=== PATIENT | female | born 1990 | race African-American/Black ===

== ENCOUNTER → 2022-08-21 | Outpatient (CLI) | payer OTHER | LOC: M RAD 15:11 | PROVIDERS: ATTEND Physician Assistant | DX: M25.532 Pain in left wrist (principal); R93.6 Abnormal findings on diagnostic imaging of limbs ==

== ENCOUNTER → 2022-10-14 | Outpatient (CLI) | payer OTHER ==
[~2022-10-14] MED LIST: ISOVUE-300 61% 50ML VIAL ONE; LIDOCAINE 1% MDV 20ML VIAL ONE; PROHANCE 279.3MG/ML 5ML VIAL ONE
== END ==
LOC: M PLAIMG 13:12
PROVIDERS: ATTEND Physician Assistant
DX: M25.532 Pain in left wrist (principal)
CPT/HCPCS: 73223; 77002; A9576

== ENCOUNTER 2023-08-06 16:58 | Inpatient (IN) | payer OTHER ==
[~2023-08-06] VITALS: Ht 165.1 cm; Wt 68.2 kg
[2023-08-06 18:25] LABS: HEMATOCRIT 36.6 % (36.0-47.0); HEMOGLOBIN 12.2 g/dl (12.0-15.5); MEAN CORPUSCULAR HEMOGLOBIN 29.3 pg (27.0-33.0); MEAN CORPUSCULAR HGB CONC 33.3 g/dl (32.0-36.5); PLATELET COUNT, AUTOMATED 284 10^3/uL (150-450); RED BLOOD COUNT 4.16 10^6/uL (4.00-5.40); WHITE BLOOD COUNT 3.8 10^3/uL (4.0-10.0)
[2023-08-06] MEDS ORDERED: MED REC IN PROGRESS XX SCH (18:40)
[2023-08-06 18:56] LABS: ETHYL ALCOHOL (ETHANOL) 0.004 % (0.000-0.010)
[2023-08-06 18:57] LABS: ACETAMINOPHEN LEVEL 2.8 UG/ML (10.0-20.0); SALICYLATE LEVEL < 3.0 MG/DL (<30)
[2023-08-06 18:58] LABS: ALBUMIN 3.6 G/DL (3.2-5.2); ALKALINE PHOSPHATASE 57 U/L (46-116); ALT/SGPT 19 U/L (7.0-40); AST/SGOT 19 U/L (<34); BILIRUBIN,DIRECT < 0.1 MG/DL (<0.4); BILIRUBIN,TOTAL 0.3 MG/DL (0.3-1.2); BLOOD UREA NITROGEN 20 MG/DL (9-23); CALCIUM LEVEL 8.8 MG/DL (8.5-10.1); CARBON DIOXIDE LEVEL 25 MMOL/L (20-31); CHLORIDE LEVEL 106 MMOL/L (98-107); CREATININE FOR GFR 1.01 MG/DL (0.55-1.30); GLOMERULAR FILTRATION RATE > 60.0 (>60); GLUCOSE, FASTING 96 MG/DL (60-100); POTASSIUM SERUM 3.9 MMOL/L (3.5-5.1); SODIUM LEVEL 138 MMOL/L (136-145); TOTAL PROTEIN 7.4 G/DL (5.7-8.2)
[2023-08-06 18:59] LABS: THYROID STIMULATING HORMONE 5.195 uIU/ML (0.55-4.78)
[2023-08-06 19:02] LABS: HCG, SERUM QUALITATIVE NEGATIVE (NEGATIVE)
[2023-08-06] MEDS ORDERED: BUSPAR (19:49)
[2023-08-06] MEDS ORDERED: BUSP10TA PO (19:49)
[2023-08-06] MEDS ORDERED: WELLTAB40 PO (19:52)
[2023-08-06] MEDS ORDERED: MELA10CA6 PO (19:53)
[2023-08-06 20:23] LABS: AMPHETAMINES LEVEL URINE NEGATIVE (NEGATIVE); BARBITURATES URINE NEGATIVE (NEGATIVE)
[2023-08-06 20:24] LABS: BENZODIAZEPINES URINE NEGATIVE (NEGATIVE); CANNABINOIDS URINE NEGATIVE (NEGATIVE); COCAINE METABOLITE URINE NEGATIVE (NEGATIVE); METHADONE URINE NEGATIVE (NEGATIVE); OPIATES URINE NEGATIVE (NEGATIVE); PHENCYCLIDINE URINE NEGATIVE (NEGATIVE)
[2023-08-06] MEDS ORDERED: HOME MED LIST COMPLETE! XX SCH (21:05)
[2023-08-07] MEDS ORDERED: busPIRone 10 MG TAB PO SCH (09:00)
[2023-08-07] MEDS ORDERED: buPROPion **XL** TABLET 150MG (WELLBUTRIN XL) PO SCH (09:00)
[2023-08-07] MEDS ORDERED: NICOTINE 14 MG/24 HR TRANSDERMAL TD SCH (09:00)
[2023-08-07] MEDS ORDERED: IBUPROFEN 400MG TAB PO PRN (11:30)
[2023-08-07] MEDS ORDERED: MOM 30ML SUSPENSION UDC PO PRN (11:30)
[2023-08-07] MEDS ORDERED: ACETAMINOPHEN TAB 650MG DOSE (2X325MG) PO PRN (11:30)
[2023-08-07] MEDS ORDERED: traZODone 50 MG TAB PO PRN (11:30)
[2023-08-07] MEDS ORDERED: MAALOX 30 ML SUSP *UDC PO PRN (11:30)
[2023-08-07] MEDS ORDERED: diphenhydrAMINE 25MG CAP PO PRN (11:30)
[2023-08-07 13:44] VITALS: BP 135/93; TEMP 97.5; O2SAT 99
[2023-08-07 19:00] VITALS: BP 130/88; TEMP 98.1
[2023-08-07] MEDS ORDERED: RAMELTEON 8 MG TAB (ROZEREM) PO SCH (21:00)
[2023-08-08 06:26] VITALS: BP 141/89; TEMP 98; O2SAT 100
[2023-08-08] MEDS ORDERED: traZODone 50 MG TAB PO PRN (08:50)
[2023-08-08] MEDS ORDERED: MAALOX 30 ML SUSP *UDC PO PRN (08:50)
[2023-08-08] MEDS ORDERED: IBUPROFEN 400MG TAB PO PRN (08:50)
[2023-08-08] MEDS ORDERED: ACETAMINOPHEN TAB 650MG DOSE (2X325MG) PO PRN (08:50)
[2023-08-08] MEDS: NICOTINE 14 MG/24 HR TRANSDERMAL TD SCH (09:00)
[2023-08-08] MEDS: VENLAFAXINE **XR** 37.5 MG CAPSULE PO SCH (09:55)
[2023-08-08] MEDS: buPROPion **XL** TABLET 150MG (WELLBUTRIN XL) PO SCH (09:55)
[2023-08-08] MEDS: busPIRone 10 MG TAB PO SCH ×2 (09:55→21:24)
[2023-08-08] MEDS: diphenhydrAMINE 25MG CAP PO PRN (09:57)
[2023-08-08 16:42] VITALS: BP 111/65; TEMP 99; O2SAT 98
[2023-08-08] MEDS: RAMELTEON 8 MG TAB (ROZEREM) PO SCH (21:24)
[2023-08-09 06:04] VITALS: BP 123/73; TEMP 97.9; O2SAT 99
[2023-08-09] MEDS: NICOTINE 14 MG/24 HR TRANSDERMAL TD SCH (09:00)
[2023-08-09] MEDS: buPROPion **XL** TABLET 150MG (WELLBUTRIN XL) PO SCH (09:19)
[2023-08-09] MEDS: VENLAFAXINE **XR** 37.5 MG CAPSULE PO SCH (09:19)
[2023-08-09] MEDS: busPIRone 10 MG TAB PO SCH ×2 (09:19→20:42)
[2023-08-09 16:08] VITALS: BP 135/82; TEMP 98.4; O2SAT 99
[2023-08-09] MEDS: RAMELTEON 8 MG TAB (ROZEREM) PO SCH (20:42)
[2023-08-10 06:27] VITALS: BP 132/74; TEMP 98.1; O2SAT 99
[2023-08-10] MEDS: NICOTINE 14 MG/24 HR TRANSDERMAL TD SCH (08:46)
[2023-08-10] MEDS: busPIRone 10 MG TAB PO SCH ×2 (08:49→20:32)
[2023-08-10] MEDS: VENLAFAXINE **XR** 75MG CAPSULE PO SCH (08:49)
[2023-08-10] MEDS: buPROPion **XL** TABLET 150MG (WELLBUTRIN XL) PO SCH (08:50)
[2023-08-10] MEDS ORDERED: VENLAFAXINE **XR** 37.5 MG CAPSULE PO SCH (09:00)
[2023-08-10] MEDS ORDERED: NICOTINE 14 MG/24 HR TRANSDERMAL TD PRN (09:40)
[2023-08-10 16:26] VITALS: BP 120/68; TEMP 98.7; O2SAT 99
[2023-08-10] MEDS: RAMELTEON 8 MG TAB (ROZEREM) PO SCH (20:33)
[2023-08-11 06:25] VITALS: BP 130/81; TEMP 98.2; O2SAT 97
[2023-08-11] MEDS: buPROPion **XL** TABLET 150MG (WELLBUTRIN XL) PO SCH (08:17)
[2023-08-11] MEDS: VENLAFAXINE **XR** 75MG CAPSULE PO SCH (08:17)
[2023-08-11] MEDS: busPIRone 10 MG TAB PO SCH ×2 (08:17→20:09)
[2023-08-11 18:13] VITALS: BP 136/87; TEMP 97.8
[2023-08-11] MEDS: RAMELTEON 8 MG TAB (ROZEREM) PO SCH (20:09)
[2023-08-12 06:35] VITALS: BP 137/73; TEMP 99; O2SAT 99
[2023-08-12] MEDS: busPIRone 10 MG TAB PO SCH ×2 (08:17→20:23)
[2023-08-12] MEDS: VENLAFAXINE **XR** 75MG CAPSULE PO SCH (08:17)
[2023-08-12] MEDS: buPROPion **XL** TABLET 150MG (WELLBUTRIN XL) PO SCH (08:18)
[2023-08-12 18:03] VITALS: BP 127/76; TEMP 98.1; O2SAT 100
[2023-08-12] MEDS: RAMELTEON 8 MG TAB (ROZEREM) PO SCH (20:23)
[2023-08-12] MEDS: traZODone 100 MG TAB PO PRN (20:23)
[2023-08-13 06:43] VITALS: BP 119/75; TEMP 97; O2SAT 99
[2023-08-13] MEDS: buPROPion **XL** TABLET 150MG (WELLBUTRIN XL) PO SCH (09:12)
[2023-08-13] MEDS: VENLAFAXINE **XR** 75MG CAPSULE PO SCH (09:12)
[2023-08-13] MEDS: busPIRone 10 MG TAB PO SCH ×2 (09:13→20:10)
[2023-08-13 16:25] VITALS: BP 121/71; TEMP 98.3; O2SAT 99
[2023-08-13] MEDS: RAMELTEON 8 MG TAB (ROZEREM) PO SCH (20:10)
[2023-08-13] MEDS: traZODone 100 MG TAB PO PRN (20:10)
[2023-08-14 06:33] VITALS: BP 120/71; TEMP 99.8
[2023-08-14] MEDS: buPROPion **XL** TABLET 150MG (WELLBUTRIN XL) PO SCH (08:43)
[2023-08-14] MEDS: busPIRone 10 MG TAB PO SCH ×2 (08:43→20:39)
[2023-08-14] MEDS: VENLAFAXINE **XR** 75MG CAPSULE PO SCH (08:43)
[2023-08-14] MEDS ORDERED: VENLAFAXINE **XR** 75MG CAPSULE PO ONE (08:55)
[2023-08-14] MEDS ORDERED: busPIRone 10 MG TAB PO ONE (09:00)
[2023-08-14 18:35] VITALS: BP 126/69; TEMP 98; O2SAT 100
[2023-08-14] MEDS: RAMELTEON 8 MG TAB (ROZEREM) PO SCH (20:39)
[2023-08-15 07:10] VITALS: BP 125/84; TEMP 98.9; O2SAT 95
[2023-08-15] MEDS: busPIRone 10 MG TAB PO SCH ×2 (08:22→20:11)
[2023-08-15] MEDS: VENLAFAXINE **XR** 75MG CAPSULE PO SCH (08:22)
[2023-08-15] MEDS: buPROPion **XL** TABLET 150MG (WELLBUTRIN XL) PO SCH (08:23)
[2023-08-15 19:10] VITALS: BP 116/78; TEMP 97.6
[2023-08-15] MEDS: RAMELTEON 8 MG TAB (ROZEREM) PO SCH (20:11)
[2023-08-16 06:15] VITALS: BP 120/74; TEMP 98.6; O2SAT 99
[2023-08-16] MEDS: buPROPion **XL** TABLET 150MG (WELLBUTRIN XL) PO SCH (08:30)
[2023-08-16] MEDS: VENLAFAXINE **XR** 75MG CAPSULE PO SCH (08:31)
[2023-08-16] MEDS: busPIRone 10 MG TAB PO SCH ×2 (08:31→20:22)
[2023-08-16 18:25] VITALS: BP 118/81; TEMP 98; O2SAT 99
[2023-08-16] MEDS: traZODone 100 MG TAB PO PRN (20:22)
[2023-08-16] MEDS: RAMELTEON 8 MG TAB (ROZEREM) PO SCH (20:22)
[2023-08-17 06:29] VITALS: BP 117/55; TEMP 98.8; O2SAT 97
[2023-08-17] MEDS: VENLAFAXINE **XR** 75MG CAPSULE PO SCH (09:11)
[2023-08-17] MEDS: busPIRone 10 MG TAB PO SCH ×2 (09:11→20:58)
[2023-08-17] MEDS: buPROPion **XL** TABLET 150MG (WELLBUTRIN XL) PO SCH (09:12)
[2023-08-17 18:39] VITALS: BP 116/76; TEMP 99.6; O2SAT 96
[2023-08-17] MEDS: RAMELTEON 8 MG TAB (ROZEREM) PO SCH (20:58)
[2023-08-17] MEDS: traZODone 100 MG TAB PO PRN (20:58)
[2023-08-18 06:44] VITALS: BP 108/63; TEMP 98.1; O2SAT 95
[2023-08-18] MEDS: busPIRone 10 MG TAB PO SCH ×2 (08:32→20:19)
[2023-08-18] MEDS: VENLAFAXINE **XR** 75MG CAPSULE PO SCH (08:32)
[2023-08-18] MEDS: buPROPion **XL** TABLET 150MG (WELLBUTRIN XL) PO SCH (08:32)
[2023-08-18 18:22] VITALS: BP 109/75; TEMP 98.5; O2SAT 95
[2023-08-18] MEDS: traZODone 100 MG TAB PO PRN (20:19)
[2023-08-18] MEDS: RAMELTEON 8 MG TAB (ROZEREM) PO SCH (20:19)
[2023-08-19 06:54] VITALS: BP 109/59; TEMP 97.9; O2SAT 100
[2023-08-19] MEDS: VENLAFAXINE **XR** 75MG CAPSULE PO SCH (08:44)
[2023-08-19] MEDS: buPROPion **XL** TABLET 150MG (WELLBUTRIN XL) PO SCH (08:44)
[2023-08-19] MEDS: busPIRone 10 MG TAB PO SCH ×2 (08:45→21:17)
[2023-08-19 16:14] VITALS: BP 114/71; TEMP 98.7; O2SAT 99
[2023-08-19] MEDS: RAMELTEON 8 MG TAB (ROZEREM) PO SCH (21:17)
[2023-08-19] MEDS: MOM 30ML SUSPENSION UDC PO PRN (21:18)
[2023-08-19] MEDS: diphenhydrAMINE 25MG CAP PO PRN (21:23)
[2023-08-20 06:54] VITALS: BP 133/65; TEMP 98.3; O2SAT 99
[2023-08-20] MEDS: VENLAFAXINE **XR** 75MG CAPSULE PO SCH (08:12)
[2023-08-20] MEDS: busPIRone 10 MG TAB PO SCH ×2 (08:12→20:47)
[2023-08-20] MEDS: buPROPion **XL** TABLET 150MG (WELLBUTRIN XL) PO SCH (08:12)
[2023-08-20] MEDS ORDERED: SENNA 8.6 MG TAB (SENOKOT) PO PRN (09:55)
[2023-08-20 16:33] VITALS: BP 131/82; TEMP 99; O2SAT 100
[2023-08-20] MEDS: RAMELTEON 8 MG TAB (ROZEREM) PO SCH (20:47)
[2023-08-20] MEDS: hydrOXYzine 50 MG TAB PO SCH (20:47)
[2023-08-21 06:32] VITALS: BP 144/86; TEMP 98.8; O2SAT 97
[2023-08-21] MEDS: VENLAFAXINE **XR** 75MG CAPSULE PO SCH (08:54)
[2023-08-21] MEDS: busPIRone 10 MG TAB PO SCH ×2 (08:54→20:43)
[2023-08-21] MEDS: buPROPion **XL** TABLET 150MG (WELLBUTRIN XL) PO SCH (08:54)
[2023-08-21] MEDS: MOM 30ML SUSPENSION UDC PO PRN (09:21)
[2023-08-21] MEDS ORDERED: VENL150C43 PO (15:05)
[2023-08-21] MEDS ORDERED: SENN-188 PO (15:05)
[2023-08-21] MEDS ORDERED: RAME8TAB2 PO (15:05)
[2023-08-21] MEDS ORDERED: HYDR50TA70 PO (15:05)
[2023-08-21] MEDS ORDERED: BUSP10TA PO (15:05)
[2023-08-21] MEDS ORDERED: WELLTAB40 PO (15:05)
[2023-08-21] MEDS: RAMELTEON 8 MG TAB (ROZEREM) PO SCH (20:43)
[2023-08-21] MEDS: hydrOXYzine 50 MG TAB PO SCH (20:43)
== END 2023-08-22 | disposition other institution (70) | DRG 885 ==
LOC: M ED 16:58 → M PSY 08-07 11:30 → M ED 08-07 11:59
PROVIDERS: ADMIT Student in an Organized Health Care Education/Training Program; ATTEND Student in an Organized Health Care Education/Training Program
DX: F33.0 Major depressive disorder, recurrent, mild (principal); R45.851 Suicidal ideations; F43.9 Reaction to severe stress, unspecified; N75.0 Cyst of Bartholin's gland; E07.9 Disorder of thyroid, unspecified; Z20.822 Contact with and (suspected) exposure to COVID-19; Z79.899 Other long term (current) drug therapy; Z91.012 Allergy to eggs; Z91.018 Allergy to other foods; Z91.040 Latex allergy status; Z91.51 Personal history of suicidal behavior; Z81.8 Family history of other mental and behavioral disorders

== ENCOUNTER 2024-01-06 15:34 | Emergency (ER) | payer OTHER ==
[~2024-01-06] VITALS: Ht 165.1 cm; Wt 68.4 kg
[~2024-01-06 15:34] MED LIST changes: +BUSP10TA PO; +BUSPAR; +HYDR50TA70 PO; -ISOVUE-300 61% 50ML VIAL ONE; -LIDOCAINE 1% MDV 20ML VIAL ONE; +MELA10CA6 PO; -PROHANCE 279.3MG/ML 5ML VIAL ONE; +RAME8TAB2 PO; +SENN-188 PO; +VENL150C43 PO; +WELLTAB40 PO
[2024-01-06] MEDS ORDERED: TRAZ-252 PO (15:56)
[2024-01-06 17:25] VITALS: BP 123/85; TEMP 98; O2SAT 98
== END 2024-01-06 17:27 | disposition home or self-care (01) ==
LOC: M ED 15:34
DX: F32.A Depression, unspecified (principal); Z91.040 Latex allergy status; Z91.018 Allergy to other foods; Z91.012 Allergy to eggs